=== PATIENT | male | born 1980 | race Hispanic/Latino ===

== ENCOUNTER 2016-10-04 20:10 | Emergency (ER) | payer MEDICAID, MEDICARE ==
[2016-10-04 21:07] LABS: BASO # 0.1 K/uL (0.0-0.2); BASO % 0.9 % (0.0-2.0); EOS # 0.2 K/uL (0.0-0.7); EOS % 1.9 % (0.0-4.0); HEMATOCRIT 47.2 % (35.0-51.0); LYMPH # 3.5 K/uL (1.0-4.3); MEAN CORPUSCULAR HEMOGLOBIN 30.4 pg (27.0-31.0); MEAN CORPUSCULAR HGB CONC 33.5 g/dL (33.0-37.0); MEAN PLATELET VOLUME 9.4 fL (7.2-11.7); MONO # 0.9 K/uL (0.0-0.8); MONO % 8.7 % (0.0-10.0); RED CELL DISTRIBUTION WIDTH 14.5 % (11.5-14.5); WHITE BLOOD COUNT 10.7 K/uL (4.8-10.8)
[2016-10-04 21:09] LABS: MEAN CELL VOLUME 90.8 fL (80.0-94.0)
[2016-10-04 21:14] LABS: CHLORIDE 99 mmol/L (98-107); SODIUM 136 mmol/L (132-148)
[2016-10-04 21:15] LABS: POTASSIUM 3.8 mmol/L (3.6-5.2)
[2016-10-04 21:16] LABS: GFR AFRICAN-AMERICAN > 60
[2016-10-04 21:17] LABS: ALKALINE PHOSPHATASE 107 U/L (38-126); ALT/SGPT 51 U/L (21-72); AST/SGOT 23 U/L (17-59); BILIRUBIN,TOTAL 0.7 mg/dL (0.2-1.3); BLOOD UREA NITROGEN 14 mg/dL (9-20); CALCIUM 9.3 mg/dl (8.6-10.4); CARBON DIOXIDE 25 mmol/L (22-30); GLUCOSE,RANDOM 90 mg/dL (75-110); TOTAL PROTEIN 7.5 g/dL (6.3-8.3)
[2016-10-04 21:18] LABS: ALCOHOL SERUM < 10 mg/dl (0-10)
--- NOTE | 2016-10-04 21:45 | C.PDOC ---
History Per: Patient History/Exam Limitations: no limitations Onset/Duration Of Symptoms: Hrs Current Symptoms Are (Timing): Still Present Suicide/Self Injury Attempted (Context): None Modifying Factor(s): None Associated Symptoms: Suicidal Thoughts, Suicidal Plan. denies: Depression Involuntary Hold By: None Recent travel outside of the [place]: No <Alessio Graves - Last Filed: 10/04/16 22:31> <Lit Nam - Last Filed: 10/05/16 02:39> Time Seen by Provider: 10/04/16 20:44 Chief Complaint (Nursing): Psychiatric Evaluation Past Medical History Reviewed: Historical Data, Nursing Documentation, Vital Signs - Medical History PMH: Bipolar Disorder (Previously diagnosed.) Surgical History: No Surg Hx Family History: States: Unknown Family Hx - Social History Hx Alcohol Use: Yes Hx Substance Use: Yes - Immunization History Hx Tetanus Toxoid Vaccination: No Hx Influenza Vaccination: No <Alessio Graves - Last Filed: 10/04/16 22:31> <Lit Nam - Last Filed: 10/05/16 02:39> Vital Signs: Last Vital Signs Temp 97.8 F 10/04/16 23:32 Pulse 66 10/04/16 23:32 Resp 18 10/04/16 23:32 BP 113/70 10/04/16 23:32 Pulse Ox 96 10/04/16 23:32 - [facility] Procedures GROUP SUCTION [employer]ING [employer] FOR SUBSTANCE ABUSE, MOTIVATIONAL ENHANCE (03/01/15) Review Of Systems Constitutional: Negative for: Fever, Chills Gastrointestinal: Negative for: Nausea, Vomiting, Diarrhea Psych: Positive for: Psychosis (Bipolar), Suicidal ideation <Alessio Graves - Last Filed: 10/04/16 22:31> Physical Exam <[facility] - Last Filed: 10/04/16 22:31> <Lit Nam - Last Filed: 10/05/16 02:39> - Physical Exam Additional Physical Exam Comments: Constitutional: No acute distress. Head: Normocephalic. Atraumatic. Eyes: PERRL. ENT: Moist mucous membranes. Neck: Supple. Cardiovascular: Regular rate. Radial pulse 2+ bilaterally. Chest: No tenderness. Respiratory: Clear to auscultation bilaterally. GI: Soft. Nontender. Nondistended. Back: No CVA tenderness. Musculoskeletal: No tenderness or swelling of extremities. Skin: No rash. Neurologic: Alert, no focal deficit. (Alessio Graves) ED Course And Treatment - Laboratory Results Result Diagrams: 10/04/16 21:01 10/04/16 21:01 O2 Sat by Pulse Oximetry: 96 (Room air) Pulse Ox Interpretation: Normal <Alessio Graves - Last Filed: 10/04/16 22:31> - Laboratory Results Result Diagrams: 10/04/16 21:01 10/04/16 21:01 <Lit Nam - Last Filed: 10/05/16 02:39> Medical Decision Making <Alessio Graves - Last Filed: 10/04/16 22:31> <Lit Nam - Last Filed: 10/05/16 02:39> Medical Decision Making: Impression: 36 year old male with SI. Plan: * Urinalysis (Alessio Graves) Disposition - Disposition Disposition Time: 22:31 <ElyAlessio Loving - Last Filed: 10/04/16 22:31> <Lit Nam - Last Filed: 10/05/16 02:39> - Disposition Disposition: OTHER INSTITUTION Condition: FAIR - Clinical Impression Clinical Impression: Depression, Suicidal ideation, Opioid abuse - Scribe Statement The provider has reviewed the documentation as recorded by the Scribe <Alessio Graves - Last Filed: 10/04/16 22:31> <Lit Nam - Last Filed: 10/05/16 02:39> - Scribe Statement Pepito Carreon All medical record entries made by the Scribe were at my direction and personally dictated by me. I have reviewed the chart and agree that the record accurately reflects my personal performance of the history, physical exam, medical decision making, and the department course for this patient. I have also personally directed, reviewed, and agree with the discharge instructions and disposition. (Alessio Graves) Addendum <ElyAlessio Inder - Last Filed: 10/04/16 22:31> <Lit Nam - Last Filed: 10/05/16 02:39> Addendum: Hx and Pe reviewed Pt with hx or drug use now with SI As of 11pm Pt has no acute medical conditions that would preclude [facility] admission therefore is "cleared" 10/05/16 02:39 (Lit Nam)
[2016-10-04 22:19] LABS: RBC URINE 3 /hpf (0-3); URINE BILIRUBIN NEGATIVE (NEGATIVE); URINE BLOOD NEGATIVE (NEGATIVE); URINE COLOR Yellow (YELLOW); URINE GLUCOSE (UA) NORMAL (Normal); URINE KETONE TRACE mg/dL (NEGATIVE); URINE LEUKOCYTE ESTERASE NEG Leu/uL (Negative); URINE PROTEIN NEGATIVE (NEGATIVE); WBC URINE 1 /hpf (0-5)
[2016-10-05 03:01] VITALS: PULSE 63; RESP 16
[2016-10-05 05:58] VITALS: BP 118/77; TEMP 98.1; O2SAT 98
--- NOTE | 2016-10-05 08:55 | RAD ---
HISTORY: needed for transfer to [facility] COMPARISON: No prior. TECHNIQUE: Chest PA and lateral FINDINGS: LUNGS: No active pulmonary disease. Bibasilar nipple shadows. Right basilar nipple ring. PLEURA: No significant pleural effusion identified. No pneumothorax apparent. CARDIOVASCULAR: Normal. OSSEOUS STRUCTURES: Degenerative changes in the spine. VISUALIZED UPPER ABDOMEN: Normal. OTHER FINDINGS: None. IMPRESSION: No active disease.
--- NOTE | 2016-10-06 18:33 | CARD ---
APPROVED REPORT EKG Measurement Heart [id number] <Conclusion> Sinus bradycardia Otherwise normal ECG
== END 2016-10-05 05:54 | disposition designated cancer center or children's hospital (05) ==
LOC: C.ER 20:10
DX: F32.9 Major depressive disorder, single episode, unspecified (principal); R45.851 Suicidal ideations; F11.10 Opioid abuse, uncomplicated
CPT/HCPCS: 71020; 80053; 81001; 85025; 93005; 99284; G0480